=== PATIENT | female | born 1970 | race Caucasian/White ===

== ENCOUNTER 2017-10-09 13:42 | Emergency (ER) | payer OTHER ==
[~2017-10-09] VITALS: Ht 167.6 cm; Wt 159.0 kg
[2017-10-09 13:46] VITALS: TEMP 37.1; Ht 167.6 cm; Wt 159.0 kg
[2017-10-09] MEDS ORDERED: LORAZEPAM 2 MG/ML 1 ML VIAL IV STA (14:24)
[2017-10-09] MEDS ORDERED: METOPROLOL TARTRATE 1 MG/ML VIAL IV STA (14:24)
--- NOTE | 2017-10-09 14:28 | DIAGNOSTIC IMAGING REPORT ---
CHEST ONE VIEW PORTABLE CLINICAL HISTORY: HTN urgency dyspnea COMPARISON STUDY: No previous studies for comparison. FINDINGS: The bones soft tissues and hemidiaphragms are normal. The cardiomediastinal silhouette is normal. The lungs are clear. The pulmonary vasculature is normal. IMPRESSION: Negative chest. The above report was generated using voice recognition software. It may contain grammatical, syntax or spelling errors. Electronically signed by: Hardy Hernandez M.D. 10/09/2017 2:26 PM Dictated Date/Time: 10/09/2017 2:26 PM
--- NOTE | 2017-10-09 14:42 | EMERGENCY ROOM VISIT NOTE ---
History First contact with patient: 13:54 Chief Complaint: HYPERTENSION Stated Complaint: HIGH BLOOD PRESSURE AT WORK History of Present Illness The patient is a 47 year old female who presents to the Emergency Room with complaints of heart palpitations and lightheadedness that occurred prior to arrival. The patient has been very stressed out at work. She reports a history of hypertension. She asked a provider at work to check her blood pressure. It was significantly elevated at 220/130. The patient takes Lasix daily for her blood pressure, which she she reports taking as directed today. She denies any chest pain or pressure. She did have a headache earlier this week. That has dissipated. The patient has been on a few different blood pressure medications-lisinopril, which gave her a cough. She is unsure of the other medications. Review of Systems 10 system review performed and negative unless noted in HPI or below Past Medical/Surgical History Hypertension Current/Historical Medications Scheduled Furosemide (Lasix), 20 MG PO DAILY Metoprolol Tartrate (Lopressor) (Lopressor), 0.5 TAB PO BID Omeprazole ([facility] Omeprazole), 20 MG PO DAILY Potassium Chloride (Micro-K Ext Rel), 10 MEQ PO DAILY Sertraline (Zoloft), 50 MG PO DAILY Physical Exam Vital Signs Date Time Temp Pulse Resp B/P (MAP) Pulse Ox O2 Delivery O2 Flow Rate FiO2 10/09/17 16:38 78 139/92 97 10/09/17 15:38 85 159/105 98 Room Air 10/09/17 14:55 83 18 148/113 97 Room Air 10/09/17 14:53 90 21 159/100 97 Room Air 10/09/17 14:53 96 154/114 10/09/17 14:51 96 154/114 97 10/09/17 14:50 92 18 154/115 10/09/17 14:29 125 10/09/17 13:46 37.1 115 18 204/121 95 Room Air Physical Exam VITALS: Hypertensive, tachycardic GENERAL: 47-year-old female, mildly anxious in appearance,, in no acute distress , nondiaphoretic, well-developed well-nourished. SKIN: The skin was without rashes, erythema, edema, or bruising. There is no tenting of the skin. Capillary reflex less than 2 seconds. HEAD: Normocephalic atraumatic. EYES: Pupils equal round and reactive to light and accommodation. Conjunctivae without injection, sclerae without icterus. Extraocular movements intact. MOUTH: Mucous membranes dry NECK: Supple without nuchal rigidity. No lymphadenopathy. Cervical spine is nontender. No JVD. HEART: Regular rate and rhythm without murmurs gallops or rubs. LUNGS: Clear to auscultation bilaterally without wheezes, rales or rhonchi. No accessory muscle use. ABDOMEN: Positive bowel sounds x 4.Soft, nontender, without organomegaly. No guarding or rebound tenderness. MUSCULOSKELETAL: +1 pitting edema without any erythema, tenderness or warmth in the lower extremities bilaterally strength 5/5 throughout. NEURO: Patient was alert and oriented to person place and time. Cranial nerves grossly intact. Strength 5/5. Negative Romberg. Cerebellar function intact. Normal sensation to touch. No focal neurological deficits. Medical Decision & Procedures ER Provider Diagnostic Interpretation: CXR IMPRESSION: Negative chest. The above report was generated using voice recognition software. It may contain grammatical, syntax or spelling errors. Electronically signed by: Hardy Hernandez M.D. 10/09/2017 2:26 PM Dictated Date/Time: 10/09/2017 2:26 PM The status of this report is Signed. Draft = Not yet reviewed or approved by Radiologist. Signed = Reviewed and approved by Radiologist. <AttendingPhy></AttendingPhy> <FamilyPhy></FamilyPhy> <PrimaryPhy>No Doctor, Assigned</PrimaryPhy> <UnitNumber>[id number]</UnitNumber> <VisitNumber> [id number]</VisitNumber> <PatientName>EDWARD SOLORZANO Charity</PatientName> <DateOfBirth >1970</DateOfBirth> <Location>[facility]</Location> <ServiceDate>10/09/17</ ServiceDate> <MNE>ESINDI</MNE> <OrderingPhy>Nereyda Miner PA-C</OrderingPhy> < OrderingPhyMNE>f rep ord dr ferreira</OrderingPhyMNE> <DictatingPhyMNE>f rep dict dr ferreira</DictatingPhyMNE> <CCListMNE>f rep ct mne</CCListMNE> <AdmittingPhyMNE>f pt admit dr ferreira</AdmittingPhyMNE> <AttendingPhyMNE>f pt attend dr ferreira</ AttendingPhyMNE> <ConsultingPhyMNE>f pt consult dr ferreira</ConsultingPhyMNE> <FamilyPhyMNE>f pt fam dr ferreira</FamilyPhyMNE> <OtherPhyMNE>f pt other dr ferreira</OtherPhyMNE> < PrimaryPhyMNE>f pt prim care dr ferreira</PrimaryPhyMNE> <ReferringPhyMNE>f pt referring dr ferreira</ReferringPhyMNE> head CT Patient Name: EDWARD SOLORZANO Unit Number: [id number] Impression: No acute intracranial abnormality. The above report was generated using voice recognition software. It may contain grammatical, syntax or spelling errors. Electronically signed by: Haryd Hernandez M.D. 10/09/2017 3:28 PM Dictated Date/Time: 10/09/2017 3:27 PM The status of this report is Signed. Draft = Not yet reviewed or approved by Radiologist. Signed = Reviewed and approved by Radiologist. <AttendingPhy></AttendingPhy> <FamilyPhy>No Doctor, Assigned</FamilyPhy> < PrimaryPhy>No Doctor, Assigned</PrimaryPhy> <UnitNumber>[id number]</UnitNumber> <VisitNumber>[id number]</VisitNumber> <PatientName>EDWARD SOLORZANO</PatientName > <DateOfBirth>1970</DateOfBirth> <Location>[facility]</Location> <ServiceDate> 10/09/17</ServiceDate> <MNE>ESINDI</MNE> <OrderingPhy>Nereyda Miner PA-C</ OrderingPhy> <OrderingPhyMNE>f rep ord dr ferreira</OrderingPhyMNE> <DictatingPhyMNE> f rep dict dr ferreira</DictatingPhyMNE> <CCListMNE>f rep ct rominae</CCListMNE> < AdmittingPhyMNE>f pt admit dr ferreira</AdmittingPhyMNE> <AttendingPhyMNE>f pt attend dr ferreira</AttendingPhyMNE> <ConsultingPhyMNE>f pt consult dr ferreira</ConsultingPhyMNE> <FamilyPhyMNE>f pt fam dr ferreira</FamilyPhyMNE> <OtherPhyMNE>f pt other dr ferreira</OtherPhyMNE> < PrimaryPhyMNE>f pt prim care dr ferreira</PrimaryPhyMNE> <ReferringPhyMNE>f pt referring dr ferreira</ReferringPhyMNE> Laboratory Results 10/09/17 14:40 Red Blood Count 5.10, Mean Corpuscular Volume 78.4, Mean Corpuscular Hemoglobin 26.3, Mean Corpuscular Hemoglobin Concent 33.5, Mean Platelet Volume 10.2, Neutrophils (%) (Auto) 65.7, Lymphocytes (%) (Auto) 24.7, Monocytes (%) (Auto) 6.9, Eosinophils (%) (Auto) 2.0, Basophils (%) (Auto) 0.5, Neutrophils # (Auto) 3.99, Lymphocytes # (Auto) 1.50, Monocytes # (Auto) 0.42, Eosinophils # (Auto) 0.12, Basophils # (Auto) 0.03 10/09/17 14:40 Test 10/09/17 00:00 10/09/17 14:40 Urine Color YELLOW Urine Appearance CLEAR (CLEAR) Urine pH 5.5 (4.5-7.5) Urine Specific [place] 1.022 (1.000-1.030) Urine Protein TRACE (NEG) Urine Glucose (UA) TRACE (NEG) Urine Ketones NEG (NEG) Urine Occult Blood 1+ (NEG) Urine Nitrite NEG (NEG) Urine Bilirubin NEG (NEG) Urine Urobilinogen NEG (NEG) Urine Leukocyte Esterase NEG (NEG) Urine WBC (Auto) 1-5 /hpf (0-5) Urine RBC (Auto) 5-10 /hpf (0-4) Urine Hyaline Casts (Auto) 1-5 /lpf (0-5) Urine Epithelial Cells (Auto) >30 /lpf (0-5) Urine Bacteria (Auto) NEG (NEG) Urine Test NEG (NEG) White Blood Count 6.07 K/uL (4.8-10.8) Red Blood Count 5.10 M/uL (4.2-5.4) Hemoglobin 13.4 g/dL (12.0-16.0) Hematocrit 40.0 % (37-47) Mean Corpuscular Volume 78.4 fL (80-100) Mean Corpuscular Hemoglobin 26.3 pg (25-34) Mean Corpuscular Hemoglobin Concent 33.5 g/dl (32-36) Platelet Count 218 K/uL (130-400) Mean Platelet Volume 10.2 fL (7.4-10.4) Neutrophils (%) (Auto) 65.7 % Lymphocytes (%) (Auto) 24.7 % Monocytes (%) (Auto) 6.9 % Eosinophils (%) (Auto) 2.0 % Basophils (%) (Auto) 0.5 % Neutrophils # (Auto) 3.99 K/uL (1.4-6.5) Lymphocytes # (Auto) 1.50 K/uL (1.2-3.4) Monocytes # (Auto) 0.42 K/uL (0.11-0.59) Eosinophils # (Auto) 0.12 K/uL (0-0.5) Basophils # (Auto) 0.03 K/uL (0-0.2) RDW Standard Deviation 44.0 fL (36.4-46.3) RDW Coefficient of Variation 15.4 % (11.5-14.5) Immature Granulocyte % (Auto) 0.2 % Immature Granulocyte # (Auto) 0.01 K/uL (0.00-0.02) Anion Gap 7.0 mmol/L (3-11) Est Creatinine Clear Calc Drug Dose 128.2 ml/min Estimated GFR () 95.3 Estimated GFR (Non- 82.2 BUN/Creatinine Ratio 15.8 (10-20) Calcium Level 8.4 mg/dl (8.5-10.1) Total Bilirubin 0.4 mg/dl (0.2-1) Aspartate Amino Transf (AST/SGOT) 29 U/L (15-37) Alanine Aminotransferase (ALT/SGPT) 40 U/L (12-78) Alkaline Phosphatase 97 U/L (45-117) Troponin I < 0.015 ng/ml (0-0.045) Total Protein 7.0 gm/dl (6.4-8.2) Albumin 3.3 gm/dl (3.4-5.0) Globulin 3.7 gm/dl (2.5-4.0) Albumin/Globulin Ratio 0.9 (0.9-2) Thyroid Stimulating Hormone (TSH) 1.240 uIu/ml (0.300-4.500) Medications Administered Medications (Trade) Dose Ordered Sig/Inga Route Start Time Stop Time Status Last Admin Dose Admin Metoprolol Tartrate (Lopressor Iv) 5 mg NOW STAT IV 10/09/17 14:24 10/09/17 14:25 DC 10/09/17 14:53 5 MG Lorazepam (Ativan Inj) 0.5 mg NOW STAT IV 10/09/17 14:24 10/09/17 14:25 DC 10/09/17 14:52 0.5 MG Lorazepam (Ativan 1MG Home Pack) 1 homepack UD ONCE PO 10/09/17 16:00 10/09/17 16:01 DC 10/09/17 16:25 1 HOMEPACK ED Course Patient was seen and examined Vital signs including blood pressure were reviewed medications list was verified with patient Labs were obtained, and a saline lock was established An EKG was performed and reviewed by myself.. She was put on a monitor. She was medicated with Lopressor and Ativan IV Upon reevaluation, the patient says that she is feeling 100% better. We discussed her results. She voiced understanding. A repeat EKG was performed. The EKGs were reviewed by my supervising physician who is in agreement with my plan. I reviewed discharge instructions the patient. They voiced understanding and had no further questions. Medical Decision Differential diagnosis: Hypertension, hypertensive urgency/emergency, anxiety This patient is a 47-year-old female presents to the emergency department complaining of heart palpitations and high blood pressure that was noticed at work. She does admit to being severely stressed. The patient was significantly hypertensive and tachycardic. She was treated with Lopressor IV and Ativan with excellent symptomatic results. Her blood pressure improved. Her EKG shows no signs of ischemia. Chest x-ray with no acute findings. Her troponin is negative. No signs of renal dysfunction. Her head CT was also without acute findings. There are no signs of hypertensive urgency. I believe she is stable to be discharged home with close follow-up. She was comfortable with this plan. She was given a prescription for metoprolol. She will continue taking her Lasix at home. She will have her blood pressure rechecked in the next 24-48 hours, and agrees to return with worsening symptoms This chart was completed in part utilizing [employer] Speech Voice Recognition software. Attempts were made to minimize the grammatical errors, random word insertions, pronoun errors and incomplete sentences. Any formal questions or concerns about the content, text or information contained within the body of this dictation should be directly addressed to the provider for clarification. Medication Reconcilliation Current Medication List: was personally reviewed by me Blood Pressure Screening Patient's blood pressure: Elevated blood pressure Blood pressure disposition: Referred to PCP Impression Primary Impression: Hypertension Departure Information Dispostion Home / Self-Care Condition GOOD Prescriptions Metoprolol Tartrate (Lopressor) (Lopressor) 25 Mg Tab 0.5 TAB PO BID for 30 Days, #30 TAB Prov: Nereyda Miner PA-C 10/09/17 Referrals No Doctor, Assigned (PCP) Patient Instructions [facility] Additional Instructions You have been evaluated in the emergency department for high blood pressure.It is possible that stress is playing a factor. Please continue Lasix as prescribed Please start metoprolol 12.5 mg tab twice daily Please take Ativan 0.5 mg every 8 hours as needed for severe anxiety. Do not drink alcohol or drive while taking this medication. Please follow-up with your primary care physician within the next 24-48 hours for recheck Do not hesitate to return to the emergency department with any new, worsening or concerning symptoms; especially, chest pain, difficulty breathing, severe headache, slurred speech or dizziness. It was a pleasure participating in your care today. Work Instructions Return To Work: 2 days
[2017-10-09 14:56] LABS: BASO % 0.5 %; BASO ABS # 0.03 K/uL (0-0.2); EOS ABS # 0.12 K/uL (0-0.5); HEMOGLOBIN 13.4 g/dL (12.0-16.0); IG# 0.01 K/uL (0.00-0.02); LYMPH % 24.7 %; MEAN CELL VOLUME 78.4 fL (80-100); MEAN CORPUSCULAR HEMOGLOBIN 26.3 pg (25-34); MEAN CORPUSCULAR HGB CONC 33.5 g/dl (32-36); MEAN PLATELET VOLUME 10.2 fL (7.4-10.4); MONO % 6.9 %; MONO ABS # 0.42 K/uL (0.11-0.59); NEUT % 65.7 %; NEUT ABS # 3.99 K/uL (1.4-6.5); PLATELET COUNT 218 K/uL (130-400); RED CELL DISTRIBUTION WIDTH CV 15.4 % (11.5-14.5); WHITE BLOOD COUNT 6.07 K/uL (4.8-10.8)
[2017-10-09 15:23] LABS: ALBUMIN 3.3 gm/dl (3.4-5.0); ALT/SGPT 40 U/L (12-78); AST/SGOT 29 U/L (15-37); BLOOD UREA NITROGEN 13 mg/dl (7-18); CALCIUM 8.4 mg/dl (8.5-10.1); CARBON DIOXIDE 25 mmol/L (21-32); CREATININE 0.84 mg/dl (0.60-1.20); GLUCOSE 112 mg/dl (70-99); POTASSIUM 3.6 mmol/L (3.5-5.1); SODIUM 140 mmol/L (136-145)
--- NOTE | 2017-10-09 15:29 | DIAGNOSTIC IMAGING REPORT ---
HEAD WITHOUT CONTRAST (CT) CT DOSE: 1277.12 mGycm HISTORY: Hypertension HTN COCHRAN TECHNIQUE: Multiaxial CT images of the head were performed without the use of intravenous contrast. A dose lowering technique was utilized adhering to the principles of ALARA. Comparison: None. Findings: The paranasal sinuses and mastoid air cells are clear. The calvarium and skull base are intact. The ventricles and sulci are within normal limits. There is no mass, hematoma, midline shift, or acute infarct. Impression: No acute intracranial abnormality. The above report was generated using voice recognition software. It may contain grammatical, syntax or spelling errors. Electronically signed by: Hardy Hernandez M.D. 10/09/2017 3:28 PM Dictated Date/Time: 10/09/2017 3:27 PM
[2017-10-09 15:33] LABS: ALKALINE PHOSPHATASE 97 U/L (45-117)
[2017-10-09] MEDS ORDERED: SERT50TA PO (15:35)
[2017-10-09] MEDS ORDERED: FURO-85 PO (15:35)
[2017-10-09] MEDS ORDERED: POTA10CA28 PO (15:35)
[2017-10-09] MEDS ORDERED: OMEP20TA40 PO (15:35)
[2017-10-09] MEDS ORDERED: ATIVAN 1MG HOMEPACK PO ONE (16:00)
[2017-10-09] MEDS ORDERED: METO25TA56 PO (16:08)
[2017-10-09] MEDS: METOPROLOL TARTRATE 1 MG/ML VIAL IV STA ×2 (16:27→16:32)
[2017-10-09 16:38] VITALS: BP 139/92; PULSE 78; O2SAT 97
== END 2017-10-09 16:50 | disposition home or self-care (01) ==
LOC: C.EDB 13:46
DX: I10 Essential (primary) hypertension (principal); R60.0 Localized edema; Z79.899 Other long term (current) drug therapy